=== PATIENT | male | born 1985 | race Caucasian/White ===

== ENCOUNTER 2017-05-18 20:42 | Emergency (ER) | payer OTHER ==
--- NOTE | 2017-05-18 21:03 | UC ---
Ear Complaint HPI - HPI Summary HPI Summary: left ear feels congested and "under water" - History of Current Complaint Chief Complaint: UCEar Stated Complaint: URI Time Seen by Provider: 05/18/17 20:54 Hx Obtained From: Patient Onset/Duration: Gradual Onset, Lasting Weeks - 1 Severity Initially: Mild Severity Currently: Mild Pain Intensity: 3 Pain Scale Used: 0-10 Numeric Aggravating Factors: Nothing Alleviating Factors: Nothing Associated Signs/Symptoms: Positive: Hearing Loss - Allergies/Home Medications Allergies/Adverse Reactions: Allergies Allergy/AdvReac Type Severity Reaction Status Date / Time No Known Allergies Allergy Verified 05/18/17 20:53 PMH/Surg Hx/FS Hx/Imm Hx Previously Healthy: No - Surgical History Surgical History: None - Family History Known Family History: Positive: None, Other - kidney disease - Social History Occupation: Employed Full-time Lives: With Family Alcohol Use: Occasionally Substance Use Type: None Smoking Status (MU): Current Every Day Smoker Type: Cigarettes Amount Used/How Often: 1 ppd Length of Time of Smoking/Using Tobacco: 10 years Have You Smoked in the Last Year: Yes Household Exposure Type: Cigarettes Cessation Counseling: Patient Advised to Stop - Immunization History Most Recent Influenza Vaccination: unknown Most Recent Tetanus Shot: 2016 Most Recent Pneumonia Vaccination: never Review of Systems Constitutional: Negative Skin: Negative Eyes: Negative ENT: Ear Ache Respiratory: Negative Cardiovascular: Negative Gastrointestinal: Negative Genitourinary: Negative Motor: Negative Neurovascular: Negative Musculoskeletal: Negative Neurological: Negative Psychological: Negative Is Patient Immunocompromised?: No All Other Systems Reviewed And Are Negative: Yes Physical Exam Triage Information Reviewed: Yes Appearance: Well-Appearing, No Pain Distress, Well-Nourished Vital Signs: Initial Vital Signs Temp 98.4 F 05/18/17 20:50 Pulse 84 05/18/17 20:50 Resp 16 05/18/17 20:50 BP 129/78 05/18/17 20:50 Pulse Ox 98 05/18/17 20:50 Vital Signs Reviewed: Yes Eye Exam: Normal Eyes: Positive: Conjunctiva Clear ENT Exam: Normal ENT: Positive: Normal ENT inspection, Hearing grossly normal, Pharynx normal, Nasal congestion, Nasal drainage, TMs normal. Negative: Trismus, Muffled/ hoarse voice Dental Exam: Normal Neck exam: Normal Neck: Positive: Supple, Nontender Respiratory Exam: Normal Respiratory: Positive: Chest non-tender, Lungs clear, Normal breath sounds, No respiratory distress, No accessory muscle use Cardiovascular Exam: Normal Cardiovascular: Positive: RRR, No Murmur, Pulses Normal, Brisk Capillary Refill Musculoskeletal Exam: Normal Musculoskeletal: Positive: Strength Intact, ROM Intact, No Edema Neurological Exam: Normal Neurological: Positive: Alert, Muscle Tone Normal Psychological Exam: Normal Skin Exam: Normal Ear Complaint Course/Dx - Course Course Of Treatment: flonase, sudafed, tylenol, ibuprofen follow with pcp in 7 days - Differential Dx/Diagnosis Differential Diagnosis/HQI/PQRI: Cellulitis, Cerumen Impaction, Otitis Externa, Otitis Media, Trigeminal Nueralgia, URI Provider Diagnoses: Left serrous otitis Discharge - Discharge Plan Condition: Stable Disposition: HOME Prescriptions: Fluticasone NASAL SPRAY 50MCG* [Flonase NASAL SPRAY 50MCG*] 2 spray BOTH NARES DAILY #1 btl Patient Education Materials: Pseudoephedrine (By mouth), Fluticasone (Into the nose), Serous Otitis Media (ED) Referrals: Josue Manning MD [Primary Care Provider] - 5 Days
[2017-05-18 21:08] VITALS: BP 129/78
== END 2017-05-18 21:15 | disposition home or self-care (01) ==
LOC: UCEAST 20:42
DX: H66.92 Otitis media, unspecified, left ear (principal); F17.210 Nicotine dependence, cigarettes, uncomplicated
CPT/HCPCS: 99212; G0463

== ENCOUNTER 2017-07-25 20:06 | Emergency (ER) | payer OTHER ==
[2017-07-25] MEDS ORDERED: Acetaminophen TAB* 325 MG PO ONE (22:37)
[2017-07-25] MEDS ORDERED: Ketorolac INJ* 30 MG/ML 1 ML VIAL IV PUSH ONE (22:37)
[2017-07-25] MEDS ORDERED: NS 0.9% 1000 ML* 1,000 ML IV ONE (22:38)
[2017-07-25] MEDS ORDERED: Piperacillin/Tazobac ADVAN(*) 3.375 GM in NS 0.9% 100 ML* 100 ML IVPB ONE (22:38)
[2017-07-25 23:30] LABS: Hematocrit 43 % (42-52); Mean Corpuscular HGB Conc 35 g/dl (31-36); Mean Corpuscular Hemoglobin 32 pg (27-31); Mean Corpuscular Volume 92 fL (80-94); Mean Platelet Volume 8 um3 (7.4-10.4); Red Cell Distribution Width 13 % (10.5-15)
[2017-07-25 23:38] LABS: Comments Flag Yes
[2017-07-25 23:39] LABS: Add Diff/Slide Review? Slide Review Added
[2017-07-25 23:48] LABS: Urine Bacteria Absent (Absent); Urine Bilirubin Negative (Negative); Urine Glucose Negative (Negative); Urine Nitrite Negative (Negative)
[2017-07-25 23:48] LABS: Albumin 4.3 g/dL (3.2-5.2); BUN/Creatinine Ratio 8.8 (8-20); C Reactive Protein 77.38 mg/L (< 5.00); Calcium 9.5 mg/dL (8.6-10.3); EGFR African American 110.3 (>60); EGFR Non-African American 85.8 (>60); Globulin 3.1 g/dL (2-4); Potassium 3.6 mmol/L (3.5-5.0); Total Bilirubin 0.5 mg/dL (0.2-1.0); Total Protein 7.4 g/dL (6.4-8.9)
--- NOTE | 2017-07-26 00:19 | ED ---
Lali Ross Rebecca, scribed for Taya Mondragon MD on 07/25/17 at 2212 . Complex/Multi-Sys Presentation - HPI Summary HPI Summary: Pt is a 32 y/o M who presents to ED c/o L-sided neck pain. Pain began today at 1630 upon getting home from work and is currently moderate, ranked 7/10. No recent trauma to the neck. Additionally c/o subjective fever and chills. Denies sore throat. No prior neck or throat problems. Daughter was diagnosed with strep 3 days ago. - History Of Current Complaint Chief Complaint: EDGeneral Time Seen by Provider: 07/25/17 21:50 Hx Obtained From: Patient Onset/Duration: Lasting Hours, Still Present Severity Currently: Moderate - 7/10 Location: Pain At: - L-side of the neck Aggravating Factor(s): Nothing Alleviating Factor(s): Nothing Associated Signs And Symptoms: Positive: Fever - Allergies/Home Medications Allergies/Adverse Reactions: Allergies Allergy/AdvReac Type Severity Reaction Status Date / Time No Known Allergies Allergy Verified 05/18/17 20:53 PMH/Surg Hx/FS Hx/Imm Hx Endocrine/Hematology History: Denies: Hx Diabetes Cardiovascular History: Denies: Hx Hypertension Respiratory History: Reports: Hx Pneumonia - current Neurological History: Reports: Hx Headaches Infectious Disease History: No Infectious Disease History: Denies: History Other Infectious Disease, Traveled Outside the [place] in Last 30 Days - Family History Known Family History: Positive: Other - kidney disease - Social History Alcohol Use: Occasionally Substance Use Type: Reports: None Smoking Status (MU): Current Every Day Smoker Type: Cigarettes Amount Used/How Often: 1/2 ppd Length of Time of Smoking/Using Tobacco: 10 years Have You Smoked in the Last Year: Yes Review of Systems Positive: Fever, Chills Negative: Sore Throat Positive: Other - L-sided neck pain All Other Systems Reviewed And Are Negative: Yes Physical Exam - Summary Physical Exam Summary: VITAL SIGNS: Reviewed. GENERAL: ~Patient is a well-developed and nourished male who is lying comfortable in the stretcher. Patient is not in any acute respiratory distress. HEAD AND FACE: No signs of trauma. No ecchymosis, hematomas or skull depressions. No sinus tenderness. EYES: PERRLA, EOMI x 2, No injected conjunctiva, no nystagmus. EARS: Hearing grossly intact. Ear canals and tympanic membranes are within normal limits. MOUTH: Tonsillar swelling with no exudate of the oral pharynx. NECK: Supple, trachea is midline, tender localized swelling over the left side of the upper neck, no JVD, no carotid bruit, no c-spine tenderness, neck with full ROM. CHEST: Symmetric, no tenderness at palpation LUNGS: Clear to auscultation bilaterally. No wheezing or crackles. CVS: Regular rate and rhythm, S1 and S2 present, no murmurs or gallops appreciated. EXTREMITIES: FROM in all major joints, no edema, no cyanosis or clubbing. NEURO: Alert and oriented x 3. No acute neurological deficits. Speech is normal and follows commands. SKIN: Dry and warm Triage Information Reviewed: Yes Vital Signs On Initial Exam: Initial Vitals Temp Pulse Resp BP Pulse Ox 100.7 F 112 18 130/110 98 07/25/17 20:10 07/25/17 20:10 07/25/17 20:10 07/25/17 20:10 07/25/17 20:10 Vital Signs Reviewed: Yes Diagnostics - Vital Signs Vital Signs Temp Pulse Resp BP Pulse Ox 07/25/17 20:10 100.7 F 112 18 130/110 98 - Laboratory Result Diagrams: 07/25/17 23:13 07/25/17 23:13 Lab Statement: Any lab studies that have been ordered have been reviewed, and results considered in the medical decision making process. Complex Multi-Symp Course/Dx Assessment/Plan: Pt is a 32 y/o M who presents to ED c/o L-sided neck pain since today at 1630 upon getting home from work which is currently moderate, ranked 7/10. No recent trauma to the neck. Additionally c/o subjective fever and chills. Denies sore throat. No prior neck or throat problems. Daughter was diagnosed with strep 3 days ago. Positive group A rapid strep. Negative influenza. He will be D/C to home with Dx of strep pharyngitis with Rx for Motrin and Augmentin. He understands and agrees. - Diagnoses Provider Diagnoses: Strep pharyngitis Discharge - Discharge Plan Condition: Stable Disposition: HOME Prescriptions: Amoxicillin/Clavulanate TAB* [Augmentin TAB 875*] 875 mg PO BID #20 tab Ibuprofen TAB* [Motrin TAB* 800 MG] 800 mg PO Q6H PRN #30 tab PRN Reason: Fever/Pain Patient Education Materials: Strep Throat (ED) Referrals: Josue Manning MD [Primary Care Provider] - Additional Instructions: If you experience any difficulty breathing or drooling, return to the Emergency Department RETURN TO EMERGENCY DEPARTMENT FOR ANY NEW OR WORSENING SYMPTOMS The documentation as recorded by the Lali henning Rebecca accurately reflects the service I personally performed and the decisions made by Alanna ramon Abdul, MD.
[2017-07-26] MEDS ORDERED: Ibuprofen TAB* 800 MG PO ONE ×2 (00:31→00:41)
[2017-07-26 00:59] VITALS: BP 132/70
--- NOTE | 2017-07-26 07:21 | RAD ---
INDICATION: Fever. COMPARISON: Comparison is made with a prior study from January 25, 2014. TECHNIQUE: A portable view of the chest was obtained. FINDINGS: Cardiac and mediastinal contours appear to be within normal limits. The lungs are underinflated. There are small infiltrates at both lung bases. No pleural effusion is seen. IMPRESSION: LOW LUNG VOLUMES, SMALL BIBASILAR INFILTRATES.
== END 2017-07-26 00:58 | disposition home or self-care (01) ==
LOC: ED 20:06
DX: J02.0 Streptococcal pharyngitis (principal); M54.2 Cervicalgia; R50.9 Fever, unspecified; F17.210 Nicotine dependence, cigarettes, uncomplicated
CPT/HCPCS: 36415; 71010; 80053; 81003; 81015; 83605; 85025; 85730; 86140; 87040; 87086; 87502; 87651; 96374; 99284; A9270-GY; J1885; J2543

== ENCOUNTER 2018-08-06 07:45 | Emergency (ER) | payer OTHER ==
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
[2018-08-06] MEDS ORDERED: Acetaminophen TAB* 325 MG PO ONE (08:59)
[2018-08-06 09:50] VITALS: BP 138/61
== END 2018-08-06 09:49 | disposition home or self-care (01) ==
LOC: ED 07:45
DX: S06.0X9A Concussion with loss of consciousness of unspecified duration, initial encounter (principal); J32.9 Chronic sinusitis, unspecified; R51 Headache; Z87.891 Personal history of nicotine dependence; V49.9XXA Car occupant (driver) (passenger) injured in unspecified traffic accident, initial encounter; Y92.9 Unspecified place or not applicable
CPT/HCPCS: 70450; 99282; A9270-GY

== ENCOUNTER 2019-07-05 20:26 | Emergency (ER) | payer OTHER ==
[2019-07-05 20:41] VITALS: BP 136/91
--- NOTE | 2019-07-05 21:09 | ED ---
Lower Extremity - HPI Summary HPI Summary: 34 yr old male with the complaint of bilateral 1MP joint redness and pain in his feet. Onset over the past 3 days with redness in both 1st metatarsal phalangeal joints. The patient has no fever or chills. No swelling of the ankles or lower extremities. No red streaks up the leg. - History of Current Complaint Chief Complaint: UCLowerExtremity Stated Complaint: BILATERAL FEET SWELLING Time Seen by Provider: 07/05/19 20:52 Pain Intensity: 8 - Allergies/Home Medications Allergies/Adverse Reactions: Allergies Allergy/AdvReac Type Severity Reaction Status Date / Time No Known Allergies Allergy Verified 07/05/19 20:41 PMH/Surg Hx/FS Hx/Imm Hx Endocrine/Hematology History: Denies: Hx Anticoagulant Therapy, Hx Diabetes Cardiovascular History: Denies: Hx Hypertension Respiratory History: Reports: Hx Pneumonia - current Neurological History: Reports: Hx Headaches Infectious Disease History: No Infectious Disease History: Denies: History Other Infectious Disease, Traveled Outside the [place] in Last 30 Days - Family History Known Family History: Positive: None, Other - kidney disease - Social History Alcohol Use: None Hx Substance Use: No Substance Use Type: Reports: None Hx Tobacco Use: Yes - quit 2 months ago Smoking Status (MU): Light Every Day Tobacco Smoker Type: Cigarettes Amount Used/How Often: 1/2 ppd Length of Time of Smoking/Using Tobacco: 10 years Have You Smoked in the Last Year: Yes Review of Systems Constitutional: Negative Positive: Other - bilateral 1st MP joint redness and pain both feet. All Other Systems Reviewed And Are Negative: Yes Physical Exam Triage Information Reviewed: Yes Vital Signs On Initial Exam: Initial Vitals Temp Pulse Resp BP Pulse Ox 97.8 F 94 16 136/91 97 07/05/19 20:35 07/05/19 20:35 07/05/19 20:35 07/05/19 20:35 07/05/19 20:35 Vital Signs Reviewed: Yes Appearance: Positive: Well-Appearing, No Pain Distress Skin: Positive: Warm Head/Face: Positive: Normal Head/Face Inspection Eyes: Positive: EOMI ENT: Positive: Normal ENT inspection Neck: Positive: Nontender Respiratory/Lung Sounds: Positive: Clear to Auscultation, Breath Sounds Present Cardiovascular: Positive: RRR, Pulses are Symmetrical in both Upper and Lower Extremities. Negative: Murmur Abdomen Description: Negative: Distended Musculoskeletal: Positive: Strength/ROM Intact Neurological: Positive: Sensory/Motor Intact, Alert, Oriented to Person Place, Time, CN Intact II-III Psychiatric: Positive: Normal Diagnostics - Vital Signs Vital Signs Temp Pulse Resp BP Pulse Ox 07/05/19 20:35 97.8 F 94 16 136/91 97 - Laboratory Lab Statement: Any lab studies that have been ordered have been reviewed, and results considered in the medical decision making process. Lower Extremity Course/Dx - Course Course Of Treatment: 34 yr old with bilateral 1st MP joint gout. DC home on indocin. FU with PMD for further testing . - Diagnoses Provider Diagnoses: Gout, Hypertension Discharge ED - Sign-Out/Discharge Documenting (check all that apply): Patient Departure All imaging exams completed and their final reports reviewed: No Studies - Discharge Plan Condition: Good Disposition: HOME Prescriptions: Indomethacin CAP* [Indocin CAP*] 50 mg PO TID PRN #15 cap PRN Reason: Pain - Moderate Patient Education Materials: Low Purine Diet (ED), Gout (ED), Hypertension (ED) Referrals: Josue Manning MD [Primary Care Provider] - 2 Days - Billing Disposition and Condition Condition: GOOD Disposition: Home
[2019-07-05] MEDS ORDERED: Indomethacin CAP* 25 MG CAP PO ONE (21:11)
== END 2019-07-05 21:19 | disposition home or self-care (01) ==
LOC: UCCORT 20:26
DX: M10.9 Gout, unspecified (principal); I10 Essential (primary) hypertension; F17.210 Nicotine dependence, cigarettes, uncomplicated; Z79.899 Other long term (current) drug therapy
CPT/HCPCS: 99212; A9270-GY; G0463